=== PATIENT | male | born 1975 | race Caucasian/White ===

== ENCOUNTER 2025-01-23 18:36 | Day surgery (SDC) | payer MEDICARE ==
[~2025-01-23] VITALS: Ht 180.3 cm; Wt 90.7 kg
[2025-01-23] VITALS (9 sets, daily range): BP systolic 126–179; BP diastolic 85–113; PULSE 56–75; RESP 16–18; TEMP 97.7–97.9; O2SAT 94–98
[2025-01-23] MEDS ORDERED: GLUCAGEN ONE (18:55)
[2025-01-23] MEDS: GLUCAGEN IV STA (19:00)
[2025-01-23 19:07] LABS: BASOPHIL # 0.0 10^3/uL (0.0-0.1); BASOPHIL % 0.6 % (0.2-1.2); EOSINOPHIL # 0.2 10^3/uL (0.0-0.2); EOSINOPHIL % 3.3 % (0.0-5.0); HEMATOCRIT(ML) 37.9 % (37.0-53.0); IG % 0.20 % (0.00-0.50); LYMPHOCYTES # 1.70 10^3/uL1 (1.0-4.8); LYMPHOCYTES % 27.0 % (24.0-44.0); MEAN CORP HGB 31.7 pg (26-34); MEAN CORP HGB CONCENTRATION 34.6 g/dL (33-36.5); MEAN CORP VOLUME 91.8 fL (78-100); MONOCYTES # 0.6 10^3/uL (0.3-0.8); MONOCYTES % 8.9 % (5.0-12.0); NEUTROPHIL # 3.8 10^3/uL (1.8-7.7); NEUTROPHILS % 60.0 % (41.0-85.0); RED BLOOD CELL 4.13 10^6/uL (4.50-5.90); RED CELL DISTRIBUTION WIDTH 13.3 % (11.5-14.5); WHITE BLOOD CELL 6.3 10^3/uL (4.5-11.0)
[2025-01-23 19:12] LABS: CREATININE SERUM 1.58 mg/dL (0.59-1.40); EST GFR, NON-AA 46.7 (>/=60)
[2025-01-23] MEDS ORDERED: NS 1000ML 1,000 ML ONE (19:19)
[2025-01-23] MEDS: NS 1000ML 1,000 ML STA (19:23)
[2025-01-23] MEDS ORDERED: OFIRMEV 100 ML IV ONE (19:44)
[2025-01-23] MEDS: OFIRMEV 100 ML IV STA (19:48)
[2025-01-23] MEDS ORDERED: WATER ONE (20:03)
[2025-01-23] MEDS ORDERED: LACTATED RINGERS 1,000 ML ONE (20:20)
[2025-01-23] MEDS ORDERED: XYLOCAINE 2% 5ML VIAL ONE (20:24)
[2025-01-23] MEDS ORDERED: DIPRIVAN IV ONE (20:24)
[2025-01-23] MEDS ORDERED: VERSED ONE (20:24)
[2025-01-23] MEDS ORDERED: ZOFRAN ONE (20:25)
[2025-01-23] MEDS ORDERED: PROTONIX IV IV ONE ×2 (20:35→20:37)
== END 2025-01-23 21:27 | disposition home or self-care (01) ==
LOC: ER 18:36 → SDC 19:45
PROVIDERS: ATTEND Surgery
DX: T18.108A Unspecified foreign body in esophagus causing other injury, initial encounter (principal); M19.90 Unspecified osteoarthritis, unspecified site; W44.9XXA Unspecified foreign body entering into or through a natural orifice, initial encounter; Z90.49 Acquired absence of other specified parts of digestive tract; Z98.1 Arthrodesis status; Z88.0 Allergy status to penicillin; Z79.899 Other long term (current) drug therapy
CPT/HCPCS: 43247; 99285; 85025; 36415; 80048; J1610; J7030 ×2; J7120; A4217; J0131; J2704; J2003; J2405; J2250